=== PATIENT | female | born 1950 | race Two or more races ===

== ENCOUNTER 2018-06-16 07:00 | Inpatient (IN) | payer OTHER ==
[~2018-06-16] VITALS: Ht 154.9 cm; Wt 59.0 kg
[~2018-06-16 07:00] MED LIST: ANASTROZOLE1 MG PO; AVAPRO300 MG PO; CARVEDILOL25 MG PO; FEOSOL325 MG PO; HUMULIN N100 UNIT/2; HYDROCHLOROTHIA25 MG PO; LEVO-T50 MCG PO; PROTONIX40 M1 PO; RANITIDINE HCL300 MG PO; RESTORIL30 M1 PO
[2018-06-19] MEDS ORDERED: OXYC1TAB9 PO (12:17)
== END 2018-06-19 12:32 | disposition home or self-care (01) | DRG 331 ==
LOC: O/R 07:00 → SURH 10:00
PROVIDERS: ADMIT Surgery
PROC: 07TB4ZZ Resection of Mesenteric Lymphatic, Percutaneous Endoscopic Approach (ICD-10-PCS; 2018-06-16)
PROC: 0DTF4ZZ Resection of Right Large Intestine, Percutaneous Endoscopic Approach (ICD-10-PCS; principal; 2018-06-16 10:00)
DX: C18.2 Malignant neoplasm of ascending colon (principal); R59.0 Localized enlarged lymph nodes; D50.0 Iron deficiency anemia secondary to blood loss (chronic); C50.111 Malignant neoplasm of central portion of right female breast; I11.9 Hypertensive heart disease without heart failure; E11.9 Type 2 diabetes mellitus without complications; E03.8 Other specified hypothyroidism; E78.00 Pure hypercholesterolemia, unspecified